=== PATIENT | female | born 1990 | race Caucasian/White ===

== ENCOUNTER 2023-10-21 22:32 | Inpatient (IN) | payer BC ==
[~2023-10-21] VITALS: Ht 170.2 cm; Wt 61.4 kg
[2023-10-21 22:45] VITALS: BP 137/87; PULSE 81; TEMP 98.6
[2023-10-21] MEDS ORDERED: ASPIRIN 81M81 MG/TA2 PO (22:59)
[2023-10-21] MEDS ORDERED: PRENATAL TABLET PO (22:59)
[2023-10-21] MEDS ORDERED: LR 1,000 ML IV SCH (23:00)
[2023-10-21] MEDS ORDERED: DIFLUCAN 100MG100 MG PO (23:01)
[2023-10-21] MEDS ORDERED: TUMS500 MG (23:02)
[2023-10-21] MEDS ORDERED: PRILOSEC 20MG20 MG PO (23:02)
[2023-10-21] MEDS ORDERED: DESYREL 50MG50 MG (23:04)
[2023-10-21] MEDS ORDERED: ENDOMETRIN100 MG VG (23:04)
[2023-10-21 23:13] LABS: BASO % 0.2 % (0.0-2.0); GRAN # 9.6 K/mm3 (1.4-6.5); GRAN % 86.7 % (42.2-75.2); HEMOGLOBIN 12.3 g/dl (12.5-16.0); LYMPH # 0.9 K/mm3 (1.2-3.4); LYMPH % 7.8 % (20.0-51.0); MEAN CELL VOLUME 86 fl (80.0-100.0); MEAN CORPUSCULAR HEMOGLOBIN 29 pg (27-31); MEAN CORPUSCULAR HGB CONC 33 g/dl (33.0-37.0); MEAN PLATELET VOLUME 10.6 fl (7.4-10.4); MONO # 0.5 K/mm3 (0.1-0.6); MONO % 4.8 % (1.7-9.3); PLATELET COUNT 187 K/mm3 (130-400); RED BLOOD COUNT 4.31 M/mm3 (4.10-5.30); REDCELL DISTRIBUTION WIDTH-CV 13.2 % (11.5-14.5)
[2023-10-21 23:15] VITALS: BP 131/76; PULSE 81
[2023-10-21] MEDS ORDERED: Betamethasone Acetate/Na Phos 6 MG/ML 5 ML MDV IM ONE (23:15)
[2023-10-21 23:45] VITALS: BP 146/73; PULSE 84
[2023-10-21] MEDS ORDERED: Phenylephrine 10 MG/ML VIAL ONE (23:53)
[2023-10-21] MEDS ORDERED: NS 20 ML IV ONE (23:53)
[2023-10-21] MEDS ORDERED: EPINEPHrine 1 MG/1 ML Ampule ONE (23:53)
[2023-10-21] MEDS ORDERED: Ondansetron 4 MG/2 ML VIAL ONE (23:53)
[2023-10-21] MEDS ORDERED: Ketorolac 60 MG/2 ML VIAL IM ONE (23:53)
[2023-10-22] VITALS (19 sets, daily range): BP systolic 93–146; BP diastolic 47–73; PULSE 57–84; TEMP 97.9–98.2
[2023-10-22] MEDS ORDERED: Meperidine 50 MG/ML 1 ML VIAL ONE (00:05)
[2023-10-22] MEDS ORDERED: Oxytocin 10 UNITS/ML VIAL ONE ×2 (00:10→01:06)
[2023-10-22] MEDS ORDERED: LR 1,000 ML IV ONE ×2 (00:43→01:06)
--- NOTE | 2023-10-22 00:50 | NUR ---
SPECULUM EXAM PERFORMED TO REMOVE CERCLAGE IN OR. DR. WOODSON UNABLE TO VISUALIZE CERCLAGE AT THIS TIME. DR. WOODSON WAS ABLE TO REMOVE CERCLAGE AFTER BABY WAS DELIVERED VIA .
[2023-10-22] MEDS ORDERED: LR 1,000 ML IV PRN (01:45)
[2023-10-22] MEDS ORDERED: Measles/Mumps/Rubella Virus Vaccine Live w Diluent 0.5 ML VIAL SQ SCH (01:45)
[2023-10-22] MEDS ORDERED: Magnes Hydrox (MOM) 80 MG/ML 30 ML CUP PO PRN (01:45)
[2023-10-22] MEDS ORDERED: Ondansetron 4 MG/2 ML VIAL IV PRN (01:45)
[2023-10-22] MEDS ORDERED: Naloxone 0.4 MG/ML VIAL IV PRN (01:45)
[2023-10-22] MEDS ORDERED: Loratadine 10 MG TAB PO PRN (01:45)
[2023-10-22] MEDS ORDERED: oxyCODONE/Acetaminophen 5-325 MG TAB PO PRN (01:45)
[2023-10-22] MEDS ORDERED: Sennosides/Docusate 8.6-50 MG TAB PO SCH (08:00)
[2023-10-22] MEDS ORDERED: Ibuprofen 800 MG TAB PO SCH (08:00)
--- NOTE | 2023-10-22 12:49 | NUR ---
Initial viist; Patient thanked [employer] for offering congratulations and God's blessings for the of her son. [employer] mentioned that if she would like her baby blessed while she is here to let her nurse know to contact [employer] who will be happy to come back and bless him.
[2023-10-22] MEDS ORDERED: traZODone 50 MG TAB PO PRN (21:00)
[2023-10-23 08:00] VITALS: BP 122/86; PULSE 68; TEMP 98.2
[2023-10-23] MEDS ORDERED: Prenatal Vitamins/Iron/FA TAB PO SCH (09:00)
[2023-10-23] MEDS ORDERED: Ibuprofen 800 MG TAB PO SCH (16:45)
[2023-10-23 17:00] VITALS: BP 129/73; PULSE 67; TEMP 98.3
[2023-10-23 20:40] VITALS: BP 113/57; PULSE 70; TEMP 97.7
[2023-10-24 08:15] VITALS: BP 109/74; PULSE 72; TEMP 97.9
[2023-10-24] MEDS ORDERED: IBU800 M1 PO (09:03)
[2023-10-24] MEDS ORDERED: PERCOCET 325 MG1 TA2 PO (09:03)
--- NOTE | 2023-10-24 11:41 | NUR ---
[id number] RN calls Roles MD and informs her no discharge order was placed on pt. Orders given to place discharge order in at this time
--- NOTE | 2023-10-24 14:18 | NUR ---
6300 PT GIVEN BOTH WRITTEN AND VERBAL DISCHARGE INSTRUCTIONS. PT EDUCATED ON REASONS TO BE SEEN BY A MEDICAL PROFESSIONAL. PT VERBALIZES UNDERSTANDING AND HAS NO QUESTIONS AT THIS TIME
== END 2023-10-24 13:50 | disposition home or self-care (01) | DRG 788 ==
LOC: LDRO 22:32 → LDR 22:32 → LDRO 22:47 → LDR 22:48 → OB 10-22 02:15
PROVIDERS: ADMIT Student in an Organized Health Care Education/Training Program
PROC: 10D00Z1 Extraction of Products of Conception, Low, Open Approach (ICD-10-PCS; principal; 2023-10-21)
DX: O34.211 Maternal care for low transverse scar from previous cesarean delivery (principal); Z3A.36 36 weeks gestation of pregnancy; Z37.0 Single live birth; O99.214 Obesity complicating childbirth
CPT/HCPCS: J0171; J0665; J0690; J1885; J2175; J2371; J2405; J2590; J7120